=== PATIENT | male | born 1990 | race African-American/Black ===

== ENCOUNTER 2021-02-04 05:02 | Emergency (ER) | payer OTHER ==
[~2021-02-04] VITALS: Ht 180.3 cm; Wt 88.5 kg
[2021-02-04 05:03] VITALS: BP 137/85
[2021-02-04] MEDS ORDERED: ADVIL LIQUI-GE200 MG PO (05:08)
[2021-02-04] MEDS ORDERED: PENICILLIN VK500 M1 PO (05:49)
[2021-02-04] MEDS ORDERED: NORCO5 PO (05:49)
== END 2021-02-04 06:00 | disposition home or self-care (01) ==
LOC: ER 05:02
DX: K04.7 Periapical abscess without sinus (principal); Z79.1 Long term (current) use of non-steroidal anti-inflammatories (NSAID)